=== PATIENT | male | born 1960 | race Two or more races ===

== ENCOUNTER 2020-11-16 14:44 | Emergency (ER) | payer OTHER ==
[~2020-11-16] VITALS: Ht 172.7 cm; Wt 74.4 kg
[2020-11-16] MEDS ORDERED: SYNTHROID50 MCG PO (14:53)
[2020-11-16] MEDS ORDERED: LIPITOR40 MG PO (14:53)
[2020-11-16] MEDS ORDERED: VASOTEC5 MG PO (14:53)
[2020-11-16] MEDS ORDERED: TRICOR145 MG PO (14:54)
[2020-11-16] MEDS ORDERED: KETO10TA2 PO (19:35)
[2020-11-16] MEDS ORDERED: CYCLOBENZAPRINE10 MG PO (19:35)
== END 2020-11-16 20:19 | disposition home or self-care (01) ==
LOC: ER 14:44
DX: M54.89 Other dorsalgia (principal); M79.662 Pain in left lower leg; M25.562 Pain in left knee